=== PATIENT | male | born 1960 | race American Indian/Alaskan Native ===

== ENCOUNTER 2016-07-21 18:20 | Emergency (ER) | payer OTHER ==
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
[2016-07-21] MEDS ORDERED: MORPHINE IV ONE (21:19)
[2016-07-21] MEDS ORDERED: NACL 0.9% 1000 ML 1,000 ML IV ONE (21:19)
[2016-07-21] MEDS ORDERED: ZOFRAN ODT ONE (21:39)
[2016-07-21] MEDS ORDERED: ZOFRAN ODT PO ONE (21:43)
[2016-07-21] MEDS ORDERED: NACL ONE (21:45)
[2016-07-21 21:59] LABS: Basophils % (Auto) 0.3 % (0.0-1.8); Eosinophils % (Auto) 0.1 % (0.0-4.3); Hematocrit 44.4 % (35.5-45.6); Hemoglobin 14.8 gm/dl (11.8-15.2); Mean Corpuscular HGB Conc 33 % (32-34); Mean Corpuscular Hemoglobin 30 pg (28-32); Mean Corpuscular Volume 91 fl (84-94); Platelet Count 241 K/mm3 (140-440); Red Blood Count 4.86 M/mm3 (3.65-5.03); Red Cell Distribution Width 15.2 % (13.2-15.2)
[2016-07-21 22:02] LABS: Anion Gap 19 mmol/L; Blood Urea Nitrogen 15 mg/dL (9-20); Calcium 9.5 mg/dL (8.4-10.2); Carbon Dioxide 26 mmol/L (22-30); Chloride 93.4 mmol/L (98-107); Creatine Kinase 313 units/L (55-170); Glucose 110 mg/dL (75-100); Potassium 3.3 mmol/L (3.6-5.0); Sodium 135 mmol/L (137-145)
[2016-07-21 22:08] LABS: INR 0.93 (0.87-1.13)
[2016-07-21 22:30] LABS: Albumin 4.4 g/dL (3.9-5); Albumin/Globulin Ratio 0.9 %; Bilirubin,Direct 0.3 mg/dL (0-0.2); Bilirubin,Total 1.3 mg/dL (0.1-1.2); Total Protein 9.1 g/dL (6.3-8.2)
[2016-07-22] MEDS ORDERED: NACL ONE (00:08)
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
[2016-07-22] MEDS ORDERED: MORPHINE IV ONE (00:15)
[2016-07-22] MEDS ORDERED: ZOFRAN IV ONE (00:15)
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
[2016-07-22] MEDS ORDERED: NACL 0.9% 500 ML 500 ML IV ONE (01:03)
[2016-07-22] MEDS ORDERED: BOOSTRIX IM ONE (02:11)
[2016-07-22 03:00] VITALS: BP 129/77
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
== END 2016-07-22 03:15 | disposition home or self-care (01) ==
LOC: ED 18:20
DX: S81.011A Laceration without foreign body, right knee, initial encounter (principal); I10 Essential (primary) hypertension; M19.90 Unspecified osteoarthritis, unspecified site; V89.2XXA Person injured in unspecified motor-vehicle accident, traffic, initial encounter; Y93.89 Activity, other specified; Y99.9 Unspecified external cause status; Y92.410 Unspecified street and highway as the place of occurrence of the external cause
CPT/HCPCS: 12001; 36415; 36569; 71020; 71250; 71260; 74176; 74177; 80048; 80074; 82550; 84484; 85025; 85610; 90471; 90715; 93005; 93010; 96361; 96374; 96375; 96376; 99284; J2270; J2405; J7030; J7040; Q9967; Q0162

== ENCOUNTER 2018-01-04 08:30 | Emergency (ER) | payer SELFPAY ==
[2018-01-04 08:39] VITALS: BP 150/92
[2018-01-04] MEDS ORDERED: SOLU-Medrol IM ONE (09:15)
[2018-01-04] MEDS ORDERED: TORADOL IM ONE (09:15)
[2018-01-04] MEDS ORDERED: ROBAXIN PO ONE (09:16)
--- NOTE | 2018-01-04 09:19 | Emergency Department Report ---
ED Neck Pain/Injury HPI - General Chief Complaint: Back Pain/Injury Stated Complaint: NECK/BACK PAIN Time Seen by Provider: 01/04/18 09:06 Mode of arrival: Ambulatory Limitations: No Limitations - History of Present Illness Initial Comments: 57-year-old male presents to ED with complaint of right neck pain and stiffness. Patient states he awoke with the symptoms yesterday morning. Patient states he took ibuprofen which helped and allowed him to go to work yesterday. However, she states pain is worse this morning. Located on the right lateral neck and going down the medial border of the right scapula. Patient reports pain with right rotation. Patient denies injury. Patient denies fever. Denies numbness or weakness in extremities MD Complaint: neck pain -: days(s) (1) Radiation: upper back Severity: moderate Quality: sharp, other (tightness) Consistency: intermittent Improves With: heat therapy, other (NSAIDS) Worsens With: immobilization, rest Context: unknown Associated Symptoms: denies: headache, fever, numbness, tingling, weakness, difficulty swallowing, nausea, vomiting Treatments Prior to Arrival: Ibuprofen, heat therapy - Related Data Previous Rx's Medication Instructions Recorded Last Taken Type Cyclobenzaprine [Flexeril] 10 mg PO TID PRN #20 tablet 07/22/16 Unknown Rx Naproxen [Naprosyn TAB] 500 mg PO BID PRN #30 tablet 07/22/16 Unknown Rx Neomycn/Bacitrc/Polymyx/Pramox 28 gm TP BID #1 oint...g. 07/22/16 Unknown Rx [Triple Antibioti-Pain Rlf Oint] Methocarbamol [Robaxin-750] 750 mg PO Q6HR PRN #20 tablet 01/04/18 Unknown Rx Naproxen [Naprosyn] 500 mg PO BID #20 tablet 01/04/18 Unknown Rx Allergies Allergy/AdvReac Type Severity Reaction Status Date / Time No Known Allergies Allergy Unverified 07/21/16 18:43 ED Review of Systems ROS: Stated complaint: NECK/BACK PAIN Other details as noted in HPI Comment: All other systems reviewed and negative Constitutional: denies: chills, fever ENT: denies: throat pain Respiratory: cough. denies: shortness of breath Cardiovascular: denies: chest pain Musculoskeletal: as per HPI Neurological: denies: headache, weakness, numbness, paresthesias ED Past Medical Hx - Past Medical History Previous Medical History?: Yes Hx Hypertension: Yes Hx Arthritis: Yes Additional medical history: SARCOIDOSIS - Surgical History Past Surgical History?: Yes Additional Surgical History: LEFT KNEE SURGERY. MULT SURG FOR SARCOIDOSIS - Social History Smoking Status: Never Smoker Substance Use Type: None - Medications Home Medications: Home Medications Medication Instructions Recorded Confirmed Last Taken Type Cyclobenzaprine [Flexeril] 10 mg PO TID PRN #20 tablet 07/22/16 Unknown Rx Naproxen [Naprosyn TAB] 500 mg PO BID PRN #30 tablet 07/22/16 Unknown Rx Neomycn/Bacitrc/Polymyx/Pramox 28 gm TP BID #1 oint...g. 07/22/16 Unknown Rx [Triple Antibioti-Pain Rlf Oint] Methocarbamol [Robaxin-750] 750 mg PO Q6HR PRN #20 tablet 01/04/18 Unknown Rx Naproxen [Naprosyn] 500 mg PO BID #20 tablet 01/04/18 Unknown Rx ED Physical Exam - General Limitations: No Limitations General appearance: alert, in no apparent distress - Head Head exam: Present: atraumatic, normocephalic - Eye Eye exam: Present: normal appearance - ENT ENT exam: Present: mucous membranes moist - Neck Neck exam: Present: normal inspection, tenderness (right lateral neck, right trapezius), other. Absent: full ROM (decreased rightward rotation) - Respiratory Respiratory exam: Present: normal lung sounds bilaterally. Absent: respiratory distress - Cardiovascular Cardiovascular Exam: Present: regular rate, normal rhythm - GI/Abdominal GI/Abdominal exam: Present: soft. Absent: tenderness - Extremities Exam Extremities exam: Present: normal inspection, full ROM - Back Exam Back exam: Present: normal inspection, tenderness (tenderness to upper back, just medial to right scapula) - Neurological Exam Neurological exam: Present: alert, oriented X3. Absent: motor sensory deficit ( sensation of upper and lower extremities intact; strength 5/5 throughout) - Psychiatric Psychiatric exam: Present: normal affect, normal mood - Skin Skin exam: Present: warm, dry, intact, normal color. Absent: rash ED Course Vital Signs 01/04/18 08:36 Temperature 97.7 F Pulse Rate 95 H Respiratory 18 Rate Blood Pressure 150/92 O2 Sat by Pulse 96 Oximetry ED Medical Decision Making - Medical Decision Making 57-year-old male with torticollis. No neuro deficits present. Patient advised to continue heat therapy. Will prescribe Naprosyn and Robaxin. Also advised gentle neck exercises. Outpatient follow-up recommended. - Differential Diagnosis torticollis Critical care attestation.: If time is entered above; I have spent that time in minutes in the direct care of this critically ill patient, excluding procedure time. ED Disposition Clinical Impression: Torticollis, acute Disposition: DC-01 TO HOME OR SELFCARE Is pt being admited?: No Condition: Stable Instructions: Spasmodic Torticollis (ED) Prescriptions: Methocarbamol [Robaxin-750] 750 mg PO Q6HR PRN #20 tablet PRN Reason: Spasms Naproxen [Naprosyn] 500 mg PO BID #20 tablet Referrals: PRIMARY CARE, [Primary Care Provider] - 3-5 Days Forms: Work/School Release Form(ED) Time of Disposition: 09:17
== END 2018-01-04 09:42 | disposition home or self-care (01) ==
LOC: ED 08:30
DX: M43.6 Torticollis (principal); I10 Essential (primary) hypertension; M19.90 Unspecified osteoarthritis, unspecified site
CPT/HCPCS: 96372; 99282; J1885; J2930